=== PATIENT | male | born 1995 | race Caucasian/White ===

== ENCOUNTER 2020-11-07 09:25 | Inpatient (IN) | payer SELFPAY ==
--- NOTE | 2020-11-07 09:46 | ED_ITS ---
Documented by User: KAILYN Mclain 11/07/20 18:09 HPI - Psych General: Chief Complaint: Psychiatric Symptoms Stated Complaint: Depression and anxiety Time Seen by Provider: 11/07/20 09:31 Source: patient Mode of arrival: ambulatory Limitations: no limitations History of Present Illness: HPI Narrative: 25-year-old male patient presents to the emergency department via private auto, ambulatory with increased depression and anxiety symptoms for the past several weeks. He reports has not had a lot of time to think over the weekend, reports increased depression secondary to inability to meet job expectations and is afraid he may not have a job. He reports difficulty with sleeping, reports insomnia, has not taken [id number] medication to help with sleep. History of present illness difficult to obtain, answers are short. He reports recent separation from his spouse, currently [facility]. He reports increased stress and anxiety due to living situation and employment situation. When asked what brought into the hospital today as he has experienced anxiety and depression symptoms for the past 4 weeks, he reports decided to receive treatment today. He has an appointment tomorrow with behavioral health for intake. MD complaint: feels depressed Onset (ago): week(s) (4) Duration: constant History of same: Yes Relieving factors: none Exacerbating factors: none Context: recent drug abuse Associated psychiatric symptoms: depression and other (Anxiety) Associated symptoms: Reports auditory hallucinations (Reports voices are telling him what other people think, not positive or neg) and depression; Deny visual hallucinations, homicidal ideation or suicidal ideation Review of Systems General: Reports: 10 or more systems reviewed and unremarkable except in HPI and below Const: Denies: fever(s), chills or diaphoresis Eyes: Denies: blurry vision or eye redness ENMT: Denies: throat pain, dental pain or disequilibrium Card: Denies: chest pain, palpitations or irregular heart rhythm Resp: Denies: dyspnea, productive cough, non-productive cough or wheezing GI: Denies: abdominal pain, nausea or vomiting : Denies: dysuria Musc: Denies: back pain Skin/Breast: Denies: rash or pruritus Neuro: Denies: headache(s), weakness in extremities or behavioral changes Psych: Reports: anxiety, depression, sleeping less, hopelessness, loss of interest, difficulty concentrating and auditory hallucinations (Reports voices are telling him what other people think, not positive or neg); Denies: change in appetite, memory loss, visual hallucinations, suicidal ideation or homicidal ideation Justo/Lymph: Denies: easy bruising PFSH ED PFSH: Medical History (Updated 11/07/20 @ 13:15 by Sidney Burgos DO) Anxiety Depression Physical Exam Const: COMMON NORMALS: no acute distress, patient oriented x3, healthy appearing and alert GENERAL APPEARANCE: cooperative, comfortable, well kempt and well hydrated HENMT: COMMON NORMALS: normocephalic, Normal external nose present and moist oral mucous membranes HEAD & SCALP: normocephalic NOSE: Normal external nose present Eye: COMMON NORMALS: Equal, round and reactive pupils present and EOMs intact bilaterally GENERAL EYE: appearance normal, both eyes and all related structures PUPIL: Yes Equal, round and reactive pupils present Neck/C-Spine: COMMON NORMALS: full ROM and no lymphadenopathy GENERAL: Yes normal visual inspection and Yes trachea midline CERVICAL SPINE: Yes cervical ROM normal Lymph: LYMPHATIC: no lymphadenopathy noted Chest: COMMONS NORMALS: normal inspection of the chest Resp: COMMON NORMALS: normal respiratory effort and clear to auscultation bilaterally AUSCULTATION: clear to auscultation bilaterally Cardio: COMMON NORMALS: regular rhythm, S1 normal heart sound present, S2 normal heart sound present and Peripheral pulses 2+ throughout RHYTHM: regular rhythm HEART SOUNDS: S1 normal heart sound present and S2 normal heart sound present PERIPHERAL PULSES: Peripheral pulses 2+ throughout GI: COMMON NORMALS: Normal to inspection, nondistended, normoactive bowel sounds present, Soft to palpation and non-tender INSPECTION: Yes normal to inspection PALPATION: Yes Soft to palpation : COMMON NORMALS: Yes no CVA tenderness BLADDER/KIDNEY EXAM: Yes no CVA tenderness Back/Pelvis: COMMON NORMALS: no CVA tenderness, thoracic and lumbar spine normal to inspection and no thoracic nor lumbar tenderness Extremity: COMMON NORMALS: normal to inspection, full ROM, capillary refill normal and no pedal edema GENERAL: Yes normal exam except as noted Neuro: VIVI COMA SCALE: document GCS findings Vivi coma scale eye opening: Spontaneous Vivi coma scale verbal response: Orientated Vivi coma scale motor response: Obey commands [place] coma scale total score: 15 COMMON NORMALS: patient oriented x3 and no focal motor deficits SENSOR IUM/ORIENTATION: Yes alert GAIT: Yes Normal gait present MOTOR EXAM: 5/5 motor strength present throughout Right pupil size (mm): 4 Left pupil size (mm): 4 Psych: COMMON NORMALS: mental status grossly normal, cooperative, speech normal, activity/motor behavior normal, denies homicidal ideation and denies suicidal ideation APPEARANCE: Yes grossly normal and Yes well kempt ATTITUDE: Yes calm and Yes Other attitude/behavior findings present (Psych) (Passive) ACTIVITY/MOTOR BEHAVIOR: Yes appropriate eye contact, No psychomotor agitation, No fidgeting and No restless SPEECH: Yes normal speech MOOD & AFFECT: Yes depressed mood and Yes Flat affect present THOUGHT PROCESS: Circumstantial thought process present THOUGHT CONTENT: Yes Normal thought content present, No Suicidality present, No Homicidality present and Yes Hallucination(s) present (Denies hallucinations upon exam, auditory or visual) ATTENTION/CONCENTRATION: Yes attention grossly intact MEMORY/COGNITION: Yes memory grossly intact INSIGHT: Fair insight present (Psych) JUDGEMENT: Good judgement present (Psych) Skin: COMMON NORMALS: no rashes or lesions noted and turgor normal GENERAL SKIN EXAM: no rashes or lesions noted and turgor normal MDM - Psych Lab Data: Labs: Lab Results 11/07/20 11/07/20 11/07/20 Range/Units 10:45 10:45 11:57 WBC 9.8 (4.0-10.0) 10^3/ uL RBC 5.55 H (4.1-5.3) 10^6/u L Hgb 16.1 (11.7-16.6) g/dL Hct 48.9 (42.0-52.0) % MCV 88.1 (80-94) fL MCH 29.0 (28.0-34.0) pg MCHC 32.9 (30.0-36.0) g/dL RDW 12.4 (12.1-15.1) % Plt Count 190 (130-400) 10^3/c mm MPV 10.1 (7.4-10.4) fL Neut % (Auto) 66.6 % Lymph % (Auto) 23.0 % [place] % (Auto) 7.9 % Eos % (Auto) 1.5 % Baso % (Auto) 0.6 % Neut # (Auto) 6.55 (1.8-7.7) 10^3/u L Lymph # (Auto) 2.3 (0.8-4.8) 10^3/u L [place] # (Auto) 0.8 (0.2-0.9) 10^3/u L Eos # (Auto) 0.2 (0.0-0.8) 10^3/u L Baso # (Auto) 0.1 (0.0-0.1) 10^3/u L Nucleated RBC % (a uto) 0 % Nucleated RBCs # 0.0 /100WBC Sodium 139 (136-145) mmol/L Potassium 4.2 (3.5-5.1) mmol/L Chloride 103 (98-107) mmol/L Carbon Dioxide 26 (22-29) mmol/L Anion Gap 14.2 (5-19) BUN 11 (6-20) mg/dL Creatinine 0.7 (0.7-1.2) mg/dL GFR Calculation 138.6 H (90-130) mL/min Glucose 91 (65-115) mg/dL Calculated Osmolal ity 287 (285-295) mOsm/k g Calcium 9.5 (8.5-10.5) mg/dL Total Bilirubin 0.5 (0.15-1.2) mg/dL AST 18 (0-40) U/L ALT 33 (0-41) U/L Alkaline Phosphata se 97 (40-130) IU/L Total Protein 6.9 (6.6-8.7) g/dL Albumin 4.8 (3.5-5.2) g/dL Globulin 2.1 (1.3-4.6) g/dL Urine Color Yellow (Yellow) Urine Appearance Clear (CLEAR) Urine pH 8 H (5-7) Ur Specific Gravit y 1.010 (1.005-1.030) Urine Protein Neg (Negative) Urine Glucose (UA) Norm (Normal) Urine Ketones Negative (Negative) Urine Blood Neg (Negative) Urine Nitrate Negative (Negative) Urine Bilirubin Neg (Negative) Prot Sulfosalicyli c Acd Negative (Negative) Urine Urobilinogen Norm (Negative) mg/dL Ur Leukocyte Marjorie ase Negative (Negative) Salicylates < 0.3 L (3-10) mg/dL Urine Opiates Scre en (Negative) ng/mL Acetaminophen < 5.0 L (10-30) ug/mL Ur Barbiturates Sc reen (Negative) ng/mL Ur Phencyclidine S crn (Negative) ng/mL Ur Amphetamines Sc reen (Negative) ng/mL U Benzodiazepines Scrn (Negative) ng/mL Urine Cocaine Scre en (Negative) ng/mL U Marijuana (THC) Screen (Negative) ng/mL Ethyl Alcohol < 10 (0-10) mg/dL 11/07/20 Range/Units 11:57 WBC (4.0-10.0) 10^3/ uL RBC (4.1-5.3) 10^6/u L Hgb (11.7-16.6) g/dL Hct (42.0-52.0) % MCV (80-94) fL MCH (28.0-34.0) pg MCHC (30.0-36.0) g/dL RDW (12.1-15.1) % Plt Count (130-400) 10^3/c mm MPV (7.4-10.4) fL Neut % (Auto) % Lymph % (Auto) % [place] % (Auto) % Eos % (Auto) % Baso % (Auto) % Neut # (Auto) (1.8-7.7) 10^3/u L Lymph # (Auto) (0.8-4.8) 10^3/u L [place] # (Auto) (0.2-0.9) 10^3/u L Eos # (Auto) (0.0-0.8) 10^3/u L Baso # (Auto) (0.0-0.1) 10^3/u L Nucleated RBC % (a uto) % Nucleated RBCs # /100WBC Sodium (136-145) mmol/L Potassium (3.5-5.1) mmol/L Chloride (98-107) mmol/L Carbon Dioxide (22-29) mmol/L Anion Gap (5-19) BUN (6-20) mg/dL Creatinine (0.7-1.2) mg/dL GFR Calculation (90-130) mL/min Glucose (65-115) mg/dL Calculated Osmolal ity (285-295) mOsm/k g Calcium (8.5-10.5) mg/dL Total Bilirubin (0.15-1.2) mg/dL AST (0-40) U/L ALT (0-41) U/L Alkaline Phosphata se (40-130) IU/L Total Protein (6.6-8.7) g/dL Albumin (3.5-5.2) g/dL Globulin (1.3-4.6) g/dL Urine Color (Yellow) Urine Appearance (CLEAR) Urine pH (5-7) Ur Specific Gravit y (1.005-1.030) Urine Protein (Negative) Urine Glucose (UA) (Normal) Urine Ketones (Negative) Urine Blood (Negative) Urine Nitrate (Negative) Urine Bilirubin (Negative) Prot Sulfosalicyli c Acd (Negative) Urine Urobilinogen (Negative) mg/dL Ur Leukocyte Marjorie ase (Negative) Salicylates (3-10) mg/dL Urine Opiates Scre en Negative (Negative) ng/mL Acetaminophen (10-30) ug/mL Ur Barbiturates Sc reen Negative (Negative) ng/mL Ur Phencyclidine S crn Negative (Negative) ng/mL Ur Amphetamines Sc reen Negative (Negative) ng/mL U Benzodiazepines Scrn Negative (Negative) ng/mL Urine Cocaine Scre en Negative (Negative) ng/mL U Marijuana (THC) Screen Positive H (Negative) ng/mL Ethyl Alcohol (0-10) mg/dL Discharge Plan Discharge Patient Disposition: Admitted As Inpatient Admit Provider: Edy Baires Clinical Impression: Suicidal ideation Condition: Stable Sign Out Sign Out Data: Patient Sign Out occurred on 11/07/20 at 12:46. Patient's care was discussed, and care was transferred from to Sidney Burgos DO. Coding Level of Care Code ED Director Of Conservation for Chg Fwd Exam Comprehensive Documented by User: Sidney Burgos DO 11/07/20 13:15 HPI - Psych General: Chief Complaint: Psychiatric Symptoms Stated Complaint: Depression and anxiety Time Seen by Provider: 11/07/20 09:31 PFSH ED PFSH: Medical History (Updated 11/07/20 @ 13:15 by Sidney Burgos, ) Anxiety Depression MDM - Psych MDM Narrative: Medical decision making narrative: Discussed with nurse practitioner Dr. Baires is already accepted reviewed the chart and examined the patient chest clear heart regular he continues to express suicidal ideation orders are written review nurse practitioner's note for the remainder of history and exam. Lab Data: Labs: Lab Results 11/07/20 11/07/20 11/07/20 Range/Units 10:45 10:45 11:57 WBC 9.8 (4.0-10.0) 10^3/ uL RBC 5.55 H (4.1-5.3) 10^6/u L Hgb 16.1 (11.7-16.6) g/dL Hct 48.9 (42.0-52.0) % MCV 88.1 (80-94) fL MCH 29.0 (28.0-34.0) pg MCHC 32.9 (30.0-36.0) g/dL RDW 12.4 (12.1-15.1) % Plt Count 190 (130-400) 10^3/c mm MPV 10.1 (7.4-10.4) fL Neut % (Auto) 66.6 % Lymph % (Auto) 23.0 % [place] % (Auto) 7.9 % Eos % (Auto) 1.5 % Baso % (Auto) 0.6 % Neut # (Auto) 6.55 (1.8-7.7) 10^3/u L Lymph # (Auto) 2.3 (0.8-4.8) 10^3/u L [place] # (Auto) 0.8 (0.2-0.9) 10^3/u L Eos # (Auto) 0.2 (0.0-0.8) 10^3/u L Baso # (Auto) 0.1 (0.0-0.1) 10^3/u L Nucleated RBC % (a uto) 0 % Nucleated RBCs # 0.0 /100WBC Sodium 139 (136-145) mmol/L Potassium 4.2 (3.5-5.1) mmol/L Chloride 103 (98-107) mmol/L Carbon Dioxide 26 (22-29) mmol/L Anion Gap 14.2 (5-19) BUN 11 (6-20) mg/dL Creatinine 0.7 (0.7-1.2) mg/dL GFR Calculation 138.6 H (90-130) mL/min Glucose 91 (65-115) mg/dL Calculated Osmolal ity 287 (285-295) mOsm/k g Calcium 9.5 (8.5-10.5) mg/dL Total Bilirubin 0.5 (0.15-1.2) mg/dL AST 18 (0-40) U/L ALT 33 (0-41) U/L Alkaline Phosphata se 97 (40-130) IU/L Total Protein 6.9 (6.6-8.7) g/dL Albumin 4.8 (3.5-5.2) g/dL Globulin 2.1 (1.3-4.6) g/dL Urine Color Yellow (Yellow) Urine Appearance Clear (CLEAR) Urine pH 8 H (5-7) Ur Specific Gravit y 1.010 (1.005-1.030) Urine Protein Neg (Negative) Urine Glucose (UA) Norm (Normal) Urine Ketones Negative (Negative) Urine Blood Neg (Negative) Urine Nitrate Negative (Negative) Urine Bilirubin Neg (Negative) Prot Sulfosalicyli c Acd Negative (Negative) Urine Urobilinogen Norm (Negative) mg/dL Ur Leukocyte Marjorie ase Negative (Negative) Salicylates < 0.3 L (3-10) mg/dL Urine Opiates Scre en (Negative) ng/mL Acetaminophen < 5.0 L (10-30) ug/mL Ur Barbiturates Sc reen (Negative) ng/mL Ur Phencyclidine S crn (Negative) ng/mL Ur Amphetamines Sc reen (Negative) ng/mL U Benzodiazepines Scrn (Negative) ng/mL Urine Cocaine Scre en (Negative) ng/mL U Marijuana (THC) Screen (Negative) ng/mL Ethyl Alcohol < 10 (0-10) mg/dL 11/07/20 Range/Units 11:57 WBC (4.0-10.0) 10^3/ uL RBC (4.1-5.3) 10^6/u L Hgb (11.7-16.6) g/dL Hct (42.0-52.0) % MCV (80-94) fL MCH (28.0-34.0) pg MCHC (30.0-36.0) g/dL RDW (12.1-15.1) % Plt Count (130-400) 10^3/c mm MPV (7.4-10.4) fL Neut % (Auto) % Lymph % (Auto) % [place] % (Auto) % Eos % (Auto) % Baso % (Auto) % Neut # (Auto) (1.8-7.7) 10^3/u L Lymph # (Auto) (0.8-4.8) 10^3/u L [place] # (Auto) (0.2-0.9) 10^3/u L Eos # (Auto) (0.0-0.8) 10^3/u L Baso # (Auto) (0.0-0.1) 10^3/u L Nucleated RBC % (a uto) % Nucleated RBCs # /100WBC Sodium (136-145) mmol/L Potassium (3.5-5.1) mmol/L Chloride (98-107) mmol/L Carbon Dioxide (22-29) mmol/L Anion Gap (5-19) BUN (6-20) mg/dL Creatinine (0.7-1.2) mg/dL GFR Calculation (90-130) mL/min Glucose (65-115) mg/dL Calculated Osmolal ity (285-295) mOsm/k g Calcium (8.5-10.5) mg/dL Total Bilirubin (0.15-1.2) mg/dL AST (0-40) U/L ALT (0-41) U/L Alkaline Phosphata se (40-130) IU/L Total Protein (6.6-8.7) g/dL Albumin (3.5-5.2) g/dL Globulin (1.3-4.6) g/dL Urine Color (Yellow) Urine Appearance (CLEAR) Urine pH (5-7) Ur Specific Gravit y (1.005-1.030) Urine Protein (Negative) Urine Glucose (UA) (Normal) Urine Ketones (Negative) Urine Blood (Negative) Urine Nitrate (Negative) Urine Bilirubin (Negative) Prot Sulfosalicyli c Acd (Negative) Urine Urobilinogen (Negative) mg/dL Ur Leukocyte Marjorie ase (Negative) Salicylates (3-10) mg/dL Urine Opiates Scre en Negative (Negative) ng/mL Acetaminophen (10-30) ug/mL Ur Barbiturates Sc reen Negative (Negative) ng/mL Ur Phencyclidine S crn Negative (Negative) ng/mL Ur Amphetamines Sc reen Negative (Negative) ng/mL U Benzodiazepines Scrn Negative (Negative) ng/mL Urine Cocaine Scre en Negative (Negative) ng/mL U Marijuana (THC) Screen Positive H (Negative) ng/mL Ethyl Alcohol (0-10) mg/dL Discharge Plan Discharge Patient Disposition: Admitted As Inpatient Admit Provider: Edy Baires Clinical Impression: Suicidal ideation Condition: Stable Sign Out Sign Out Data: Patient Sign Out occurred on 11/07/20 at 12:46. Patient's care was discussed, and care was transferred from to Sidney Burgos DO. Coding Level of Care Code ED Director Of Conservation for [place]bert[place] Fwd Exam Comprehensive
[2020-11-07 10:10] VITALS: PULSE 101; RESP 20; TEMP 36.8; O2SAT 97
[2020-11-07 10:57] LABS: Basophils # 0.1 10^3/uL (0.0-0.1); Basophils % 0.6 %; Eosinophils # 0.2 10^3/uL (0.0-0.8); Eosinophils % 1.5 %; Hematocrit 48.9 % (42.0-52.0); Hemoglobin 16.1 g/dL (11.7-16.6); Lymphocytes # 2.3 10^3/uL (0.8-4.8); Mean Corpuscular HGB Conc 32.9 g/dL (30.0-36.0); Mean Corpuscular Volume 88.1 fL (80-94); Mean Platelet Volume 10.1 fL (7.4-10.4); Monocytes # 0.8 10^3/uL (0.2-0.9); Monocytes % 7.9 %; Neutrophils # 6.55 10^3/uL (1.8-7.7); Neutrophils % 66.6 %; Nucleated Red Blood Cells % 0 %; Platelet Count 190 10^3/cmm (130-400); Red Blood Count 5.55 10^6/uL (4.1-5.3); Red Cell Distribution Width 12.4 % (12.1-15.1); White Blood Count 9.8 10^3/uL (4.0-10.0)
[2020-11-07 11:12] LABS: Alanine Aminotransferase 33 U/L (0-41); Albumin Level 4.8 g/dL (3.5-5.2); Alkaline Phosphatase 97 IU/L (40-130); Anion Gap 14.2 (5-19); Aspartate Amino Transferase 18 U/L (0-40); Blood Urea Nitrogen 11 mg/dL (6-20); Calcium 9.5 mg/dL (8.5-10.5); Carbon Dioxide 26 mmol/L (22-29); Chloride 103 mmol/L (98-107); Globulin 2.1 g/dL (1.3-4.6); Glomerular Filtration Rate 138.6 mL/min (90-130); Glucose 91 mg/dL (65-115); Osmolality Calculated 287 mOsm/kg (285-295); Potassium 4.2 mmol/L (3.5-5.1); Sodium 139 mmol/L (136-145); Total Bilirubin 0.5 mg/dL (0.15-1.2); Total Protein 6.9 g/dL (6.6-8.7)
[2020-11-07 11:16] LABS: Acetaminophen < 5.0 ug/mL (10-30); Alcohol Level < 10 mg/dL (0-10); Salicylate < 0.3 mg/dL (3-10)
[2020-11-07 12:01] LABS: Add Urine Microscopic? NO
[2020-11-07 12:12] LABS: Amphetamines Screen Urine Negative (Negative); Barbiturates Screen Urine Negative (Negative); Benzodiazepines Screen Urine Negative (Negative); Cocaine Screen Urine Negative (Negative); Opiate Screen Urine Negative (Negative); PCP Screen Urine Negative (Negative); THC Screen Urine Positive (Negative)
[2020-11-07 12:20] LABS: Bilirubin Urine Neg (Negative); Blood Urine Neg (Negative); Glucose Urine UA Norm (Normal); Ketones Urine Negative (Negative); Leukocyte Esterase Urine Negative (Negative); Nitrate Urine Negative (Negative); Protein Urine Neg (Negative); Sulfosalicylic Acid Urine Negative (Negative); Urine Appearance Clear (CLEAR); Urine Color Yellow (Yellow); Urobilinogen Urine Norm (Negative); pH Urine 8 (5-7)
[2020-11-07 12:56] VITALS: BP 127/75; PULSE 95; O2SAT 96
--- NOTE | 2020-11-07 13:55 | PC.NURSE ---
Pt changed into paper scrubs at this time, belongings placed in a belonging bag to be taken to [facility].
[2020-11-07 14:00] VITALS: BP 149/83; PULSE 77; O2SAT 98
[2020-11-07 14:03] VITALS: BP 145/94; PULSE 152; RESP 18; TEMP 36.7; O2SAT 98
[2020-11-07 20:24] VITALS: BP 153/71; PULSE 111; RESP 18; TEMP 36.8; O2SAT 94
[2020-11-07] MEDS: trazodone 50 mg Tablet PO (20:24)
[2020-11-07] MEDS: hyDROXYzine 25 mg Capsule 50 MG PO (20:24)
[2020-11-08 06:00] VITALS: BP 108/67; PULSE 56; RESP 17; TEMP 37.1; O2SAT 96
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
[2020-11-08 12:08] VITALS: BP 108/67; PULSE 56; RESP 17; TEMP 37.1; O2SAT 96
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
[2020-11-08] MEDS: fluoxetine 20 mg Capsule PO (13:44)
== END 2020-11-08 14:37 | disposition home or self-care (01) | DRG 885 ==
LOC: ER 13:15 → NP 13:28
PROVIDERS: Nurse Practitioner Family; Admitting Provider Psychiatry & Neurology Psychiatry; Emergency Provider Family Medicine; Visit Provider Psychiatry & Neurology Psychiatry
DX: F20.81 Schizophreniform disorder (principal); R45.851 Suicidal ideations; F32.9 Major depressive disorder, single episode, unspecified; F41.9 Anxiety disorder, unspecified; G47.00 Insomnia, unspecified; Z59.0 Homelessness; F98.8 Other specified behavioral and emotional disorders with onset usually occurring in childhood and adolescence; F91.3 Oppositional defiant disorder; F40.10 Social phobia, unspecified; F12.90 Cannabis use, unspecified, uncomplicated
CPT/HCPCS: 12345; 80053; 80306; 80307; 81003; 85025; 99284

== ENCOUNTER 2021-01-08 17:35 | Emergency (ER) | payer SELFPAY ==
[2021-01-08 17:37] VITALS: BP 144/81; PULSE 89; RESP 16; TEMP 36.8; O2SAT 97; BMI 26.3
--- NOTE | 2021-01-08 18:03 | W.ED.ABDPA2 ---
HPI - Abdominal Pain General: Chief Complaint: Abdominal Pain Stated Complaint: ABD PAIN Time Seen by Provider: 01/08/21 17:53 Source: patient Mode of arrival: ambulatory Limitations: no limitations History of Present Illness: HPI narrative: Patient is a 25-year-old male who presents to ED today stating that he has heartburn. Patient tells me he has been experiencing heartburn for several months now. He states he currently resides in a homeless retirement. He states a few weeks ago one of the homeless residents began giving him a heartburn pill that he took every day. He states when he took this medication it completely alleviated his symptoms however he states symptoms returned approximately 1 to 2 weeks ago. He states pain seems to be worse with fatty and acidic foods. When asked specifically what his symptoms include he states epigastric and chest pain along with an acid taste in his mouth. Patient is completely asymptomatic currently. He is not having any abdominal pain. No nausea, vomiting. No changes in bowel movements. He does not complain of shortness of breath or difficulty breathing. MD elicited complaint: other ( heartburn ) Pertinent past history: none Onset (ago): week(s) Pain Consistency: intermittent Location: Chest and Epigastric Severity: mild Quality: burning Radiation: none Migration to: no migration Exacerbating factors: eating (acid and fatty foods) Relieving factors: other ( heartburn pill ) Associated Symptoms: Reports no associated symptoms; Denies chills, diarrhea, dysuria, fever(s), heartburn, nausea, syncope and vomiting Review of Systems General: Reports: Other (pt has no complaints currently ) Const: Denies: fever(s) or chills Eyes: Denies: change in vision or blurry vision Card: Denies: chest pain, palpitations, irregular heart rhythm, lightheadedness, syncope or dyspnea on exertion Resp: Denies: dyspnea, productive cough or pain on inspiration GI: Denies: abdominal pain, nausea, vomiting, heartburn or diarrhea : Denies: difficulty urinating or dysuria Musc: Denies: neck pain, back pain or joint pain Skin/Breast: Denies: rash Neuro: Denies: headache(s) [facility] ED PFSH: Medical History (Updated 01/08/21 @ 18:18 by WESLEY Ortiz) Anxiety Depression Physical Exam Const: COMMON NORMALS: no acute distress, average body habitus, patient oriented x3, no limitations, healthy appearing, alert and well nourished GENERAL APPEARANCE: cooperative ORIENTATION/CONSCIOUSNESS: Yes awake, Yes oriented to person, Yes oriented to place and Yes oriented to time HENMT: COMMON NORMALS: normocephalic and atraumatic HEAD & SCALP: normocephalic and atraumatic Neck/C-Spine: COMMON NORMALS: full ROM, no lymphadenopathy, supple and no meningeal signs Chest: COMMONS NORMALS: normal inspection of the chest and normal palpation of entire chest wall Resp: COMMON NORMALS: normal respiratory effort and clear to auscultation bilaterally AUSCULTATION: clear to auscultation bilaterally Cardio: COMMON NORMALS: regular rate and regular rhythm RATE: regular rate RHYTHM: regular rhythm GI: COMMON NORMALS: Normal to inspection, nondistended, normoactive bowel sounds present, Soft to palpation, non-tender, No hepatosplenomegaly present and no masses PALPATION: Yes Soft to palpation and Yes No hepatosplenomegaly present : COMMON NORMALS: Yes no CVA tenderness BLADDER/KIDNEY EXAM: Yes no CVA tenderness Back/Pelvis: COMMON NORMALS: no CVA tenderness and thoracic and lumbar spine normal to inspection Extremity: COMMON NORMALS: normal to inspection Neuro: COMMON NORMALS: patient oriented x3 SENSORIUM/ORIENTATION: Yes alert, Yes oriented to person, Yes oriented to place and Yes oriented to time MENINGEAL SIGNS: Yes no meningeal signs Skin: COMMON NORMALS: no rashes or lesions noted GENERAL SKIN EXAM: no rashes or lesions noted Course Vital Signs: Vital signs: Vital Signs Temperature 98.2 F 01/08/21 17:37 Pulse Rate 89 01/08/21 17:37 Respiratory Rate 16 01/08/21 17:37 Blood Pressure 144/81 01/08/21 17:37 Pulse Oximetry 97 01/08/21 17:37 MDM - Abdominal Pain MDM Narrative: Medical decision making narrative: Patient has absolutely no symptoms currently. His history is consistent with heartburn. He has been successfully treated with this with heartburn medications but states he has ran out. There is no need for emergent labs or imaging on today's visit. Patient will be placed on an H2 shruti. Discharge Plan Discharge Patient Disposition: Home Clinical Impression: Heartburn Condition: Stable Prescriptions: New famotidine 20 mg tablet 20 mg PO BID 28 Days Qty: 56 RF: 0 No Action trazodone 50 mg Tablet 50 mg PO BEDTIME PRN (Reason: Sleep) 30 Days Qty: 30 RF: 1 fluoxetine 20 mg Capsule 20 mg PO DAILY 30 Days Qty: 30 RF: 1 Discharge Orders: Discharge ED (Routine); Ordered 01/08/21 Ordered By: Brittany Alcocer Patient Instructions: Famotidine (By mouth), Heartburn, Opioid Safety Activity Restrictions/Additional Instructions: [facility] is committed to fighting the nationwide opiate epidemic. We are providing ALL patients with information regarding opiate safety. If you received opiate pain medication during your stay or if you received a prescription for opiate pain medication-please review this handout. If not, you may disregard. Thank you. Coding Level of Care Code ED Station Tender for Ila Post
[2021-01-08 18:30] VITALS: BP 139/82; PULSE 78; RESP 14; O2SAT 96
== END 2021-01-08 18:49 | disposition home or self-care (01) ==
PROVIDERS: Emergency Provider Physician Assistant
DX: R12 Heartburn (principal)
CPT/HCPCS: 99282

== ENCOUNTER 2022-01-15 15:14 | Emergency (ER) | payer MEDICAID, SELFPAY ==
--- NOTE | 2022-01-15 15:16 | XRR_ITS ---
PROCEDURE INFORMATION: Exam: XR Left Ankle Exam date and time: 01/15/2022 3:16 PM Age: 26 years old Clinical indication: Pain and injury or trauma; Fall; Sprain or strain; Left; Injury details: PT slipped and fell on the ice last week; PT complains of pain from lateral lt ankle to medial lt ankle; PT thinks he May have sprained lt foot in the process; Additional info: L sided ankle pain TECHNIQUE: Imaging protocol: XR Left ankle. Views: 1 or 2 views. COMPARISON: CR XR foot LT min 3V* [id number] 01/15/2022 3:38 PM FINDINGS: Bones/joints: There is no evidence for acute fracture or malalignment. Soft tissues: Normal. XR/XR ankle LT 2V [id number] IMPRESSION: No acute findings.
--- NOTE | 2022-01-15 15:16 | XRR_ITS ---
PROCEDURE INFORMATION: Exam: XR Left Foot Exam date and time: 01/15/2022 3:16 PM Age: 26 years old Clinical indication: Pain; Foot; Left; Additional info: L foot pain TECHNIQUE: Imaging protocol: XR Left foot. Views: 3 or more views. COMPARISON: No relevant prior studies available. FINDINGS: Bones/joints: There is no evidence for acute fracture or malalignment. Soft tissues: Normal. XR/XR foot LT min 3V* [id number] IMPRESSION: No acute findings.
[2022-01-15 15:31] VITALS: BP 148/94; PULSE 86; RESP 16; TEMP 37.1; O2SAT 98; BMI 24.2
--- NOTE | 2022-01-15 15:41 | ED_ITS ---
HPI - Extremity Problem General: Chief complaint: Extremity Injury, Lower Stated complaint: Left ankle injury Time Seen by Provider: 01/15/22 15:36 History of Present Illness: Patient is a 26-year-old male comes to the ED with left ankle injury. Injury occurred approximately 1 week ago. Patient was walking on a hill and he rolled his left ankle. He went to urgent care they told him that he had a sprain and he needed to rest ice and elevate left foot. Patient says his swelling and pain have gotten a lot better. He still feels a little bit of achiness in his left ankle. Patient is able to ambulate and bear weight on left foot. Associated symptoms: Deny chest pain, fever(s) or rash Review of Systems Const: Denies: fever(s), chills or fatigue Eyes: Denies: change in vision or eye discomfort ENMT: Denies: throat pain, odynophagia, nasal discharge or nasal congestion Card: Denies: chest pain, palpitations, edema, swelling of feet/ankles, dyspnea on exertion or orthopnea Resp: Denies: dyspnea, productive cough or non-productive cough GI: Denies: abdominal pain, nausea, vomiting, diarrhea, constipation or hematochezia : Denies: flank pain, difficulty urinating, dysuria or hematuria Musc: Reports: extremity pain (Left ankle); Denies: neck pain, back pain or extremity swelling Skin/Breast: Denies: rash or new lesions Neuro: Denies: headache(s), numbness in extremities or weakness in extremities PFS ED PFSH: Medical History (Updated 01/15/22 @ 16:35 by WESLEY Powers) Anxiety Depression Fatigue Foreign body in left ear Hypertension screen Medication management Otitis externa Vitamin D deficiency Surgical History (Updated 01/15/22 @ 16:35 by WESLEY Powers) No pertinent past surgical history Social History Smoking and tobacco status: never smoked Physical Exam Const: COMMON NORMALS: no acute distress, patient oriented x3 and alert HENMT: COMMON NORMALS: normocephalic HEAD & SCALP: normocephalic MOUTH: Normal oral and palatal mucosa present THROAT: posterior oropharynx normal and uvula midline Neck/C-Spine: COMMON NORMALS: supple GENERAL: Yes normal visual inspection Resp: COMMON NORMALS: normal respiratory effort, No retractions, No use of accessory muscles and clear to auscultation bilaterally AUSCULTATION: clear to auscultation bilaterally Cardio: COMMON NORMALS: regular rate, regular rhythm, S1 normal heart sound present, S2 normal heart sound present, No gallops present (Cardio), No clicks present (Cardio), No murmurs present (Cardio) and Peripheral pulses 2+ throughout RATE: regular rate RHYTHM: regular rhythm HEART SOUNDS: S1 normal heart sound present and S2 normal heart sound present PERIPHERAL PULSES: Peripheral pulses 2+ throughout GI: COMMON NORMALS: Normal to inspection, nondistended, normoactive bowel sounds present, Soft to palpation, non-tender and no masses PALPATION: Yes Soft to palpation : COMMON NORMALS: Yes no CVA tenderness BLADDER/KIDNEY EXAM: Yes no CVA tenderness Back/Pelvis: COMMON NORMALS: no CVA tenderness Extremity: COMMON NORMALS: full ROM and no pedal edema NARRATIVE EXTREMITY EXAM: Left ankle?some mild tenderness to palpation over the lateral malleolus. Full range of motion in the left ankle. No swelling or deformity seen. Neurovascular tact. GENERAL: Yes normal exam except as noted Neuro: COMMON NORMALS: patient oriented x3 and moves all extremities SENSORIUM/ORIENTATION: Yes alert Skin: GENERAL SKIN EXAM: dry skin Course Vital Signs: Vital signs: Vital Signs Temperature 98.7 F 01/15/22 15:31 Pulse Rate 86 01/15/22 15:31 Respiratory Rate 16 01/15/22 15:31 Blood Pressure 148/94 01/15/22 15:31 Pulse Oximetry 98 01/15/22 15:31 MDM - Extremity (Nontraumatic) Medical Decision Making Patient is a 26-year-old male comes to the ED with left ankle injury. Patient says he rolled his ankle a week ago. Patient able to ambulate and weight-bear on left foot with minimal to no pain. Patient had some mild lateral malleolus tenderness over left ankle but rest of exam is benign. X-ray of left foot and left ankle showed no acute fractures or findings. Patient diagnosed with left ankle sprain and was discharged home. Lab Data Radiology Impressions Ankle X-Ray 01/15/22 15:16 IMPRESSION: No acute findings. Foot X-Ray 01/15/22 15:16 IMPRESSION: No acute findings. Discharge Plan Discharge Patient Disposition: Home Clinical Impression: Left ankle sprain Qualifiers: Encounter type: initial encounter Involved ligament of ankle: anterior talofibular ligament Qualified Code(s): S93.492A - Sprain of other ligament of left ankle, initial encounter Condition: Stable Discharge Orders: Discharge ED (Routine); Ordered 01/15/22 Ordered By: Anders Daily Referrals: DO Plunkett, LUBRICATION TECHNICIAN [Primary Care Provider] - Discharge Diet: Regular Discharge Activity: Increase activity as tolerated Patient Instructions: Ankle Sprain (DC) Activity Restrictions/Additional Instructions: Follow-up with medical provider as directed in 7 to 10 days for evaluation. Take [id number] Tylenol or ibuprofen for pain. Rest, ice and elevate foot. Return to the ER or your medical provider if condition worsens. Please read and understand discharge instructions. Thank you for choosing [facility] [place] for your healthcare needs today. Please realize this is an emergency room and that we are providing you with a medical screening exam and this may not be complete and all inclusive of all the testing and or work up that you may need to determine your ailment or severity of your illness. It is very important that you follow up as instructed or that you return to the Emergency Department should you have concerns or if your condition changes or worsens in any way. Coding Level of Care Code ED Tax Specialist for Ila Post Exam Comprehensive
== END 2022-01-15 16:43 | disposition home or self-care (01) ==
PROVIDERS: Emergency Provider Physician Assistant; PCP Nurse Practitioner Family
DX: S93.492A Sprain of other ligament of left ankle, initial encounter (principal); X50.1XXA Overexertion from prolonged static or awkward postures, initial encounter
CPT/HCPCS: 73600; 73630; 99282

== ENCOUNTER 2022-02-19 20:45 | Inpatient (IN) | payer MEDICAID, SELFPAY ==
[2022-02-19 20:50] VITALS: BP 170/100; PULSE 96; RESP 16; TEMP 37.1; O2SAT 96; BMI 25.7
--- NOTE | 2022-02-19 21:00 | ED_ITS ---
HPI - General Adult General: Chief complaint: Psychiatric Symptoms Stated complaint: Psyciatric Symptoms Time Seen by Provider: 02/19/22 20:48 History of Present Illness: HPI: [27]yo patient w/ hx of depression BIBA for severe depression and inability to care of self. Patient's father was concerned that patient has not been taking his medication and not taking care of self including not eating. for On arrival, the patient is AAOx3 and cooperative with my evaluation. No focal complaints of chest pain, shortness of breath, palpitations, N/V, focal GI/ complaints. Currently denies SI. No complaints of hallucinations. Onset:acute on chronic Duration: ongoing Location: home Severity: severe Associated symptoms: Deny chest pain, dyspnea, nausea, rash, palpitations or vomiting Review of Systems Const: Denies: fever(s) or chills Eyes: Denies: change in vision ENMT: Denies: mouth pain Card: Denies: chest pain or palpitations Resp: Denies: dyspnea or non-productive cough GI: Denies: abdominal pain, nausea, vomiting or diarrhea : Denies: dysuria Musc: Denies: extremity pain Skin/Breast: Denies: rash or new lesions Neuro: Denies: weakness in extremities Psych: Reports: depression, hopelessness and loss of interest Justo/Lymph: Denies: easy bruising PFSH ED PFSH: Medical History Anxiety Depression Fatigue Foreign body in left ear Hypertension screen Medication management Otitis externa Vitamin D deficiency Surgical History No pertinent past surgical history Social History Smoking and tobacco status: never smoked Physical Exam Const: COMMON NORMALS: alert HENMT: COMMON NORMALS: atraumatic HEAD & SCALP: atraumatic MOUTH: moist mucous membranes not abnormal Eye: COMMON NORMALS: EOMs intact bilaterally and conjunctivae normal CONJUNCTIVA: Yes conjunctivae normal Neck/C-Spine: COMMON NORMALS: full ROM and supple Resp: COMMON NORMALS: normal respiratory effort and clear to auscultation bilaterally AUSCULTATION: clear to auscultation bilaterally Cardio: COMMON NORMALS: regular rate RATE: regular rate GI: COMMON NORMALS: Soft to palpation and non-tender PALPATION: Yes Soft to palpation Extremity: COMMON NORMALS: full ROM Neuro: SENSORIUM/ORIENTATION: Yes alert MOTOR EXAM: No Abnormal motor strength present and Other motor observations present (no focal motor deficits) Psych: COMMON NORMALS: speech normal SPEECH: Yes normal speech MOOD & AFFECT: Yes apathetic Course Vital Signs: Vital signs: Vital Signs Temperature 98.8 F 02/19/22 20:50 Pulse Rate 96 02/19/22 20:50 Respiratory Rate 16 02/19/22 20:50 Blood Pressure 170/100 02/19/22 20:50 Pulse Oximetry 96 02/19/22 20:50 MDM - General Adult Medical Decision Making [27]yo patient w/ hx of depression presenting for severe depression. HDS, exam within normal limit Thoughts are linear and organized, and the patient has no AH/VH, or HI. Clinically the patient displays no overt toxidrome; they are well appearing, with low suspicion for toxic ingestion given history and exam. Symptoms unlikely 2/2 anemia, hypothyroidism, infection, or ICH. Workup: CBC, CMP, Lipase, salicylate/tylenol, UDS Lab findings: wnl, +marijuana in the urine [10:30pm] On reassessment, labs and workup wnl. Patient is hemodynamically stable with no acute medical complaints. Case discussed with psychiatric provider Dr. Gaviria at [facility] psych inpatient with recommendation for admission Disposition: Psych Lab Data : 02/19/22 21:07 02/19/22 21:07 Laboratory Results WBC 11.4 10^3/uL (4.0-10.0) H 02/19/22 21:07 RBC 5.32 10^6/uL (4.1-5.3) H 02/19/22 21:07 Hgb 15.5 g/dL (11.7-16.6) 02/19/22 21:07 Hct 45.6 % (42.0-52.0) 02/19/22 21:07 MCV 85.7 fl (80-94) 02/19/22 21:07 MCH 29.1 pg (28.0-34.0) 02/19/22 21: MCHC 34.0 g/dL (30.0-36.0) 02/19/22 21:07 RDW 12.7 % (12.1-15.1) 02/19/22 21:07 Plt Count 209 10^3/cmm (130-400) 02/19/22 21:07 MPV 10.2 fL (7.4-10.4) 02/19/22 21:07 Neut % (Auto) 67.6 % 02/19/22 21:07 Lymph % (Auto) 23.3 % 02/19/22 21:07 [place] % (Auto) 7.9 % 02/19/22 21:07 Eos % (Auto) 0.4 % 02/19/22 21:07 Baso % (Auto) 0.4 % 02/19/22 21:07 Neut # (Auto) 7.70 10^3/uL (1.8-7.7) 02/19/22 21:07 Lymph # (Auto) 2.7 10^3/uL (0.8-4.8) 02/19/22 21:07 [place] # (Auto) 0.9 10^3/uL (0.2-0.9) 02/19/22 21:07 Eos # (Auto) 0.0 10^3/uL (0.0-0.8) 02/19/22 21:07 Baso # (Auto) 0.0 10^3/uL (0.0-0.1) 02/19/22 21:07 Nucleated RBC % (auto) 0 % 02/19/22 21:07 Nucleated RBCs # 0.0 /100WBC 02/19/22 21:07 Urine Opiates Screen Negative ng/mL (Negative) 02/19/22 21:08 Ur Barbiturates Screen Negative ng/mL (Negative) 02/19/22 21:08 Ur Phencyclidine Scrn Negative ng/mL (Negative) 02/19/22 21:08 Ur Amphetamines Screen Negative ng/mL (Negative) 02/19/22 21:08 U Benzodiazepines Scrn Negative ng/mL (Negative) 02/19/22 21:08 Urine Cocaine Screen Negative ng/mL (Negative) 02/19/22 21:08 U Marijuana (THC) Screen Positive ng/mL (Negative) H 02/19/22 21:08 Discharge Plan Discharge Patient Disposition: Admitted As Inpatient Clinical Impression: Depression, Unable to take care of personal possessions Condition: Stable Coding Level of Care Code ED Compliance Testing Analyst for Delbertg Fwd Exam Comprehensive
[2022-02-19 21:16] LABS: Basophils % 0.4 %; Eosinophils % 0.4 %; Hematocrit 45.6 % (42.0-52.0); Hemoglobin 15.5 g/dL (11.7-16.6); Lymphocytes # 2.7 10^3/uL (0.8-4.8); Lymphocytes % 23.3 %; Mean Corpuscular Hemoglobin 29.1 pg (28.0-34.0); Mean Corpuscular Volume 85.7 fl (80-94); Mean Platelet Volume 10.2 fL (7.4-10.4); Monocytes # 0.9 10^3/uL (0.2-0.9); Monocytes % 7.9 %; Neutrophils % 67.6 %; Nucleated Red Blood Cells % 0 %; Platelet Count 209 10^3/cmm (130-400); Red Blood Count 5.32 10^6/uL (4.1-5.3); Red Cell Distribution Width 12.7 % (12.1-15.1); White Blood Count 11.4 10^3/uL (4.0-10.0)
[2022-02-19 21:27] LABS: Amphetamines Screen Urine Negative (Negative); Barbiturates Screen Urine Negative (Negative); Benzodiazepines Screen Urine Negative (Negative); Cocaine Screen Urine Negative (Negative); Opiate Screen Urine Negative (Negative); PCP Screen Urine Negative (Negative); THC Screen Urine Positive (Negative)
[2022-02-19 21:39] LABS: Alanine Aminotransferase 22 U/L (0-41); Albumin Level 4.6 g/dL (3.5-5.2); Alkaline Phosphatase 92 IU/L (40-130); Anion Gap 14.8 (5-19); Aspartate Amino Transferase 18 U/L (0-40); Blood Urea Nitrogen 23 mg/dL (6-20); Calcium 9.7 mg/dL (8.5-10.5); Carbon Dioxide 22 mmol/L (22-29); Chloride 108 mmol/L (98-107); Globulin 2.1 g/dL (1.3-4.6); Glomerular Filtration Rate 80.9 mL/min (90-130); Glucose 107 mg/dL (65-115); Lipase 36 U/L (13-60); Osmolality Calculated 296 mOsm/kg (285-295); Potassium 3.8 mmol/L (3.5-5.1); Sodium 141 mmol/L (136-145); Total Bilirubin 0.3 mg/dL (0.15-1.2); Total Protein 6.7 g/dL (6.6-8.7)
[2022-02-19 21:43] LABS: Acetaminophen < 5.0 ug/mL (10-30); Salicylate < 0.3 mg/dL (3-10)
[2022-02-19 21:57] VITALS: BP 148/79; PULSE 90; RESP 16; TEMP 37.1; O2SAT 96
[2022-02-19 22:21] VITALS: BP 143/92; PULSE 86; RESP 16; TEMP 36.8; O2SAT 96
[2022-02-19 22:24] VITALS: BP 148/79; PULSE 90; RESP 16; TEMP 37.1; O2SAT 96
[2022-02-19] MEDS: hyDROXYzine 25 mg Capsule 50 MG PO (23:03)
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
[2022-02-20] MEDS: OLANZapine 5 mg ODT PO ×2 (00:03→21:03)
--- NOTE | 2022-02-20 00:04 | PC.NURSE ---
Patient came to nurses station and states that he is still having racing thoughts. Olanzapine was given. Patient is back in his room
[2022-02-20 06:00] VITALS: BP 128/77; PULSE 83; RESP 17; TEMP 36.9; O2SAT 99
--- NOTE | 2022-02-20 08:17 | PC.OT ---
OT EVALUATION ATTEMPTED; PATIENT DOES NOT AWAKEN TO VOICE. WILL ATTEMPT AGAIN AT A LATER TIME.
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
[2022-02-20] MEDS: fluoxetine 20 mg Capsule PO (12:00)
[2022-02-20 13:40] VITALS: BP 129/63; PULSE 67; RESP 16; TEMP 36.8; O2SAT 97
[2022-02-20] MEDS: hyDROXYzine 25 mg Capsule 50 MG PO (19:30)
[2022-02-20 19:59] VITALS: BP 119/76; PULSE 84; RESP 18; TEMP 37; O2SAT 96
[2022-02-21 06:00] VITALS: BP 102/58; PULSE 97; RESP 19; TEMP 36.6; O2SAT 91
[2022-02-21] MEDS: hyDROXYzine 25 mg Capsule 50 MG PO ×2 (08:40→20:33)
[2022-02-21] MEDS: fluoxetine 20 mg Capsule PO (08:40)
--- NOTE | 2022-02-21 09:33 | PC.NURSE ---
PRN MED PT GIVEN 50MG VISTARIL FOR STATED ANXIETY, WILL CONTINUE TO MONITOR.
--- NOTE | 2022-02-21 11:29 | W.PM.NPUPNS ---
Subjective NPU Subjective: He said that he is doing a little better. He feels like his thoughts are a little slowed down. He says that the trazodone takes too long to help him sleep and he would like to take that at 6 PM and then the Zyprexa Zydis at 9 PM. He says that he is trying to worry less about things that are not in his control. Much of his troubles are and control of other people. He has not had any side effects from the medication so far. He has had 2 doses of Prozac 20 mg. Mental Status Exam MSE Comments: This is a 27-year old appropriate weight male who appears his approximately stated age and is in no acute distress. He was found in group at 10:30 AM. His grooming is improved. hHe is pleasant and cooperative with the evaluation. Eye contact is improved. psychomotor activity decreased. Speech is at a regular rate and rhythm, normal volume, good articulation, not pressured. Alert, oriented X3 Attention and concentration fair. Memory is intact Mood is mildly depressed, better Affect is mildly dysphoric, improved Thought process is logical and goal-directed. Thought content: Denies auditory and visual hallucinations. No delusions or paranoia are noted. No current suicidal ideation, and no homicidal ideation. Fund of knowledge is average. Insight and judgment appear to be fair. Impulse control is fair. Cognition: Patient Appearance: Appropriate Level of Consciousness: Awake, Alert, Appropriate and Follows Commands Patient Cognition Impaired: No Ability to Follow Directions: Excellent Patient Orientation (long list): Person, Place, Name, Age and Month Comprehension Ability: No Impairment Hallucination Type: None Delusion Description: Not Present Thought Process: Appropriate Affect: Affect Description: Anxious and Flat Depressive Symptoms: Difficulty Sleeping, Feelings of Worthlessness and Unhappiness Behavior: Patient Behavior: Appropriate, Cooperative and Withdrawn Speech Pattern: Appropriate and Clear Vitals/I&O/Wt Last Vital Signs Temp 97.8 F 02/21/22 06:00 Pulse 97 02/21/22 06:00 Resp 19 H 02/21/22 06:00 BP 102/58 02/21/22 06:00 Pulse Ox 91 02/21/22 06:00 Weight last 48 hrs Weight 90.718 kg Data NPU : 02/19/22 21:07 02/19/22 21:07 A&P Assessment and plan (1) Depression: Status: Acute (2) Fatigue: Status: Acute (3) Anxiety: Status: Acute Plan This is a 27-year-old male with a long history of anxiety depression and ADHD who comes in with worsening symptoms of anxiety and depression and inability to function. Plan: 1. Continue current medication. Prozac 20 mg daily and Vistaril 50 mg at bedtime 2. Continue every 15 minute checks for safety. 3. Encourage individual, group and milieu therapies. 4. Encourage sober living treatment after discharge at the highest level of care to which he is willing to commit. 5. We will monitor for safety for himself in the community prior to discharge. Involuntary Hold Information 96 Hour Hold: 96 Hour Involuntary Admission: No Attestations NPU Medical Necessity Statement*: Inpatient hospitalization is medically necessary and the clinically appropriate intervention at this time. We will initiate medications and make changes as indicated. 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
[2022-02-21 14:00] VITALS: BP 138/100; PULSE 124; RESP 18; TEMP 36.8; O2SAT 98
[2022-02-21 16:03] VITALS: BP 143/87; PULSE 93; RESP 18; TEMP 36.7; O2SAT 97
[2022-02-21] MEDS: trazodone 50 mg Tablet PO (17:03)
[2022-02-21] MEDS: OLANZapine 5 mg ODT PO (19:14)
[2022-02-21 20:30] VITALS: BP 124/78; PULSE 88; RESP 17; TEMP 37.1; O2SAT 97
[2022-02-22 06:00] VITALS: BP 120/72; PULSE 93; RESP 19; TEMP 36.4; O2SAT 95
[2022-02-22] MEDS: fluoxetine 20 mg Capsule PO (10:04)
[2022-02-22] MEDS: hyDROXYzine 25 mg Capsule 50 MG PO ×2 (10:04→20:31)
[2022-02-22] MEDS: OLANZapine 5 mg ODT PO ×3 (11:31→21:25)
[2022-02-22 14:00] VITALS: BP 131/70; PULSE 110; RESP 17; TEMP 36.8; O2SAT 96
--- NOTE | 2022-02-22 14:18 | PC.NURSE ---
PRN Medication Up to nurses station requesting something for anxiety. Vistaril 50 mg given as ordered. Reports some relief.
--- NOTE | 2022-02-22 14:19 | PC.NURSE ---
PRN Medication Up to nurses station at 1130 and request something else for anxiety. Zydis 5 mg given as ordered at 1131. Reassessed at 1230 and voices relief.
--- NOTE | 2022-02-22 16:01 | PC.SOCIAL ---
Patient did not attend group.
[2022-02-22] MEDS: trazodone 50 mg Tablet PO (17:42)
[2022-02-22 20:28] VITALS: BP 106/60; PULSE 85; RESP 19; TEMP 36.7; O2SAT 94
--- NOTE | 2022-02-22 21:45 | PC.NURSE ---
PRN Medication Patient came to nurses station requested medication for anxiety. Scheduled Hydroxyzine had already been administered. Olanzapine was given at this time.
[2022-02-23 06:00] VITALS: BP 115/72; PULSE 95; RESP 17; TEMP 36.4; O2SAT 95
[2022-02-23] MEDS: fluoxetine 20 mg Capsule 40 MG PO (08:12)
[2022-02-23] MEDS: hyDROXYzine 25 mg Capsule 50 MG PO ×2 (09:58→20:08)
--- NOTE | 2022-02-23 10:01 | PC.NURSE ---
Addendum entered by Fanta Randhawa RN 02/23/22 13:38: Late entry 2288 Vistaril not effective. Patient requested other meds to help with anxiety. Zyprexa Zydis given for anxiety. Original Note: Prn note Patient c/o feeling very anxious. Prn Vistaril given
--- NOTE | 2022-02-23 11:00 | P.NPUPN_ITS ---
Subjective NPU Subjective: He says that his anxiety is reduced. He feels like the Prozac has been helpful. He took Prozac 40 mg for the first time today. He does not have any side effects. He says that the reality of the situation is sinking in. He will probably go and live with his parents for a short time but then will sell some things and maybe by April he will go to another state. He has done that before without any money and will plan it better this time. He asked if he could get a 3-month supply of medication to assist in that process but it sounds like it would be a couple months before he is ready and he can get that from his outpatient psychiatrist. Mental Status Exam MSE Comments: This is a 27-year old appropriate weight male who appears his approximately stated age and is in no acute distress. He was found in group at 10:30 AM. His grooming is improved. hHe is pleasant and cooperativ e with the evaluation. Eye contact is improved. psychomotor activity decreased. Speech is at a regular rate and rhythm, normal volume, good articulation, not pressured. Alert, oriented X3 Attention and concentration fair. Memory is intact Mood is mildly depressed, better Affect is mildly dysphoric, improved Thought process is logical and goal-directed. Thought content: Denies auditory and visual hallucinations. No delusions or paranoia are noted. No current suicidal ideation, and no homicidal ideation. Fund of knowledge is average. Insight and judgment appear to be fair. Impulse control is fair. Cognition: Patient Appearance: Appropriate Level of Consciousness: Awake, Alert, Appropriate and Follows Commands Patient Cognition Impaired: No Ability to Follow Directions: Excellent Patient Orientation (long list): Person, Place, Name, Age and Birthday Comprehension Ability: No Impairment Hallucination Type: None Delusion Description: Not Present Thought Process: Appropriate Affect: Affect Description: Anxious Depressive Symptoms: Difficulty Sleeping, Feelings of Worthlessness and Unhappiness Behavior: Patient Behavior: Appropriate and Cooperative Speech Pattern: Appropriate and Clear Vitals/I&O/Wt Last Vital Signs Temp 97.6 F 02/23/22 06:00 Pulse 95 02/23/22 06:00 Resp 17 02/23/22 06:00 BP 115/72 02/23/22 06:00 Pulse Ox 95 02/23/22 06:00 Data NPU : 02/19/22 21:07 02/19/22 21:07 A&P Assessment and plan (1) Depression: Status: Acute (2) Fatigue: Status: Acute (3) Anxiety: Status: Acute Plan This is a 27-year-old male with a long history of anxiety depression and ADHD who comes in with worsening symptoms of anxiety and depression and inability to function. Plan: 1. Continue current medication. Increase Prozac 40 mg daily. Vistaril 50 mg at bedtime 2. Continue every 15 minute checks for safety. 3. Encourage individual, group and milieu therapies. 4. Encourage sober living treatment after discharge at the highest level of care to which he is willing to commit. 5. We will monitor for safety for himself in the community prior to discharge. Involuntary Hold Information 96 Hour Hold: 96 Hour Involuntary Admission: No Attestations NPU Medical Necessity Statement*: Inpatient hospitalization is medically necessary and the clinically appropriate intervention at this time. We will initiate medications and make changes as indicated. 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
[2022-02-23] MEDS: OLANZapine 5 mg ODT PO ×3 (11:49→22:41)
--- NOTE | 2022-02-23 13:39 | PC.NURSE ---
Prn note Patient reports the Zyprexa partially effective. He continues to have some anxiety. He denies need for meds at this time.
[2022-02-23 13:46] VITALS: BP 138/88; PULSE 64; RESP 17; TEMP 36.6; O2SAT 100
--- NOTE | 2022-02-23 16:49 | PC.SOCIAL ---
Patient attended and participated in group.
[2022-02-23] MEDS: haloperidol 5 mg Tablet PO (18:31)
[2022-02-23 20:05] VITALS: BP 122/79; PULSE 117; RESP 18; O2SAT 97
[2022-02-23] MEDS: trazodone 50 mg Tablet PO (21:31)
--- NOTE | 2022-02-24 00:22 | PC.NURSE ---
2130 rec'd trazodone for sleep. 2243- rec'd zyprexa for anxiety.
[2022-02-24 06:00] VITALS: BP 100/59; PULSE 111; RESP 18; O2SAT 95
[2022-02-24] MEDS: fluoxetine 20 mg Capsule 40 MG PO (08:24)
--- NOTE | 2022-02-24 09:03 | PC.NURSE ---
AM Assessment Resting in bed, arouses to voice. Denies pain. Denies SI/HI and AVH. Does report, I don't think my night time medications are working and its hard for me to go to sleep. Asked patient if he has told doc yet and states, no Educated patient to let doctor know how he is feeling and if medications are working. Patient voices understanding. Directed to get up and go to breakfast but declined and went back to sleep.
[2022-02-24] MEDS: hyDROXYzine 25 mg Capsule 50 MG PO ×2 (11:37→20:20)
--- NOTE | 2022-02-24 12:10 | W.PM.NPUPNS ---
Subjective NPU Subjective: He said that he is about the same. A little better than on admission but not much. He has been talking to his parents but nobody else in the family. I was not sure whether or not his and family was talking to his parents but the parents were not allowed to relay anything to him or whether nobody was talking to his parents. He thinks the medicine is helping a little. He has not had any side effects. Mental Status Exam MSE Comments: This is a 27-year old appropriate weight male who appears his approximately stated age and is in no acute distress. He was found in the hallway at 12 PM his grooming is improved. He is pleasant and cooperative with the evaluation. Eye contact is improved. psychomotor activity decreased. Speech is at a regular rate and rhythm, normal volume, good articulation, not pressured. Alert, oriented X3 Attention and concentration fair. Memory is intact Mood is mildly depressed, better Affect is mildly dysphoric, improved Thought process is logical and goal-directed. Thought content: Denies auditory and visual hallucinations. No delusions or paranoia are noted. No current suicidal ideation, and no homicidal ideation. Fund of knowledge is average. Insight and judgment appear to be fair. Impulse control is fair. Cognition: Patient Appearance: Appropriate Level of Consciousness: Awake, Alert, Appropriate and Follows Commands Patient Cognition Impaired: No Ability to Follow Directions: Excellent Patient Orientation (long list): Person, Place, Name, Age and Birthday Comprehension Ability: No Impairment Hallucination Type: None Delusion Description: Not Present Thought Process: Appropriate Affect: Affect Description: Depressed and Flat Depressive Symptoms: Difficulty Sleeping, Feelings of Worthlessness and Unhappiness Behavior: Patient Behavior: Cooperative and Withdrawn Speech Pattern: Appropriate and Clear Vitals/I&O/Wt Last Vital Signs Temp 97.8 F 02/23/22 13:46 Pulse 111 H 02/24/22 06:00 Resp 18 02/24/22 06:00 BP 100/59 02/24/22 06:00 Pulse Ox 95 02/24/22 06:00 Data NPU : 02/19/22 21:07 02/19/22 21:07 A&P Assessment and plan (1) Depression: Status: Acute (2) Fatigue: Status: Acute (3) Anxiety: Status: Acute Plan This is a 27-year-old male with a long history of anxiety depression and ADHD who comes in with worsening symptoms of anxiety and depression and inability to function. Plan: 1. Continue current medication. Increase Prozac 40 mg daily. Vistaril 50 mg at bedtime 2. Continue every 15 minute checks for safety. 3. Encourage individual, group and milieu therapies. 4. Encourage sober living treatment after discharge at the highest level of care to which he is willing to commit. 5. We will monitor for safety for himself in the community prior to discharge. Involuntary Hold Information 96 Hour Hold: 96 Hour Involuntary Admission: No Attestations NPU Medical Necessity Statement*: Inpatient hospitalization is medically necessary and the clinically appropriate intervention at this time. We will initiate medications and make changes as indicated. 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
[2022-02-24] MEDS: OLANZapine 5 mg ODT PO ×2 (13:28→18:26)
[2022-02-24 14:00] VITALS: BP 118/66; PULSE 99; RESP 17; TEMP 36.7; O2SAT 96
--- NOTE | 2022-02-24 16:29 | PC.NURSE ---
PRN Medications Up to nurses station at 1326 requesting medication for anxiety. ZYdis 5 mg given as ordered. Reassessed at 1430 and states his anxiety is much better. He was laying down and resting at that time in bed.
--- NOTE | 2022-02-24 18:27 | PC.NURSE ---
PRN Medication Up to nurses station requesting anxiety medications. States, i'm anxious again. Zydis 5 mg given as ordered. Patient went back to room and is resting in bed.
[2022-02-24 19:55] VITALS: BP 124/77; PULSE 76; RESP 20; TEMP 36.7; O2SAT 100
[2022-02-24] MEDS: trazodone 50 mg Tablet PO (21:26)
--- NOTE | 2022-02-24 22:24 | PC.NURSE ---
2125- requested trazodone for sleep. He is still awake at this time.
[2022-02-25 06:00] VITALS: BP 125/68; PULSE 67; RESP 20; TEMP 36.5; O2SAT 96
[2022-02-25] MEDS: fluoxetine 20 mg Capsule 40 MG PO (08:15)
--- NOTE | 2022-02-25 09:07 | PC.NURSE ---
Resting in bed, arouses to voice. Denies pain. Denies SI/HI and AVh at this time. States he slept well. Reports he is still having anxiety but does not need anything for it now. After assessment went back to sleep.
--- NOTE | 2022-02-25 11:45 | W.PM.NPUPNS ---
Subjective NPU Subjective: He says that his depression is not really getting any better. His anxiety is better. He denies ever having any suicidal ideation. He continues to say that he is safe to go home and has not had any thoughts of harming himself. He has only been on the Prozac 40 mg for a few days. He understands that it can take some time to start working. He wanted to add something to it to get it to work better and agreed to take some Abilify. Mental Status Exam MSE Comments: This is a 27-year old appropriate weight male who appears his approximately stated age and is in no acute distress. He was found in the hallway at 11:30 AM. his grooming is improved. He is pleasant and cooperative with the evaluation. Eye contact is improved. psychomotor activity decreased. Speech is at a regular rate and rhythm, normal volume, good articulation, not pressured. Alert, oriented X3 Attention and concentration fair. Memory is intact Mood is depressed, better Affect is constricted, mildly dysphoric. Thought process is logical and goal-directed. Thought content: Denies auditory and visual hallucinations. No delusions or paranoia are noted. No current suicidal ideation, and no homicidal ideation. Fund of knowledge is average. Insight and judgment appear to be fair. Impulse control is fair. Cognition: Patient Appearance: Appropriate Level of Consciousness: Awake, Alert, Appropriate and Follows Commands Patient Cognition Impaired: No Ability to Follow Directions: Excellent Patient Orientation (long list): Person, Place, Name, Age and Birthday Comprehension Ability: No Impairment Hallucination Type: None Delusion Description: Not Present Thought Process: Appropriate Affect: Affect Description: Appropriate and Anxious Depressive Symptoms: Difficulty Sleeping, Feelings of Worthlessness and Unhappiness Behavior: Patient Behavior: Appropriate and Cooperative Speech Pattern: Appropriate Vitals/I&O/Wt Last Vital Signs Temp 97.7 F 02/25/22 06:00 Pulse 67 02/25/22 06:00 Resp 20 H 02/25/22 06:00 BP 125/68 02/25/22 06:00 Pulse Ox 96 02/25/22 06:00 Data NPU : 02/19/22 21:07 02/19/22 21:07 A&P Assessment and plan (1) Depression: Status: Acute (2) Fatigue: Status: Acute (3) Anxiety: Status: Acute Plan This is a 27-year-old male with a long history of anxiety depression and ADHD who comes in with worsening symptoms of anxiety and depression and inability to function. Plan: 1. Continue current medication. Increase Prozac 40 mg daily. Add Abilify 5 mg every morning. 50 mg at bedtime 2. Continue every 15 minute checks for safety. 3. Encourage individual, group and milieu therapies. 4. Encourage sober living treatment after discharge at the highest level of care to which he is willing to commit. 5. We will monitor for safety for himself in the community prior to discharge. Involuntary Hold Information 96 Hour Hold: 96 Hour Involuntary Admission: No Attestations NPU Medical Necessity Statement*: Inpatient hospitalization is medically necessary and the clinically appropriate intervention at this time. We will initiate medications and make changes as indicated. Coding Level of Care Code Acute Clinical Laboratory Technician for Ila Post Diagnoses Depression F32.A Fatigue R53.83 Anxiety F41.9
[2022-02-25] MEDS: ARIPiprazole 10 mg Tablet 5 MG PO (12:02)
[2022-02-25 14:00] VITALS: BP 134/79; PULSE 99; RESP 18; TEMP 36.7; O2SAT 97
[2022-02-25] MEDS: hyDROXYzine 25 mg Capsule 50 MG PO (20:19)
[2022-02-25 20:29] VITALS: BP 142/91; PULSE 107; RESP 18; TEMP 36.9; O2SAT 97
[2022-02-25] MEDS: trazodone 50 mg Tablet PO (22:32)
[2022-02-26] MEDS: OLANZapine 5 mg ODT PO (00:36)
--- NOTE | 2022-02-26 00:38 | PC.NURSE ---
PRN ADMIN Patient c/o of racing thoughts and anxiety. PRN Zydis given as ordered with noted effectiveness.
[2022-02-26 06:00] VITALS: BP 126/74; PULSE 89; RESP 19; TEMP 36.4; O2SAT 97
[2022-02-26] MEDS: ARIPiprazole 10 mg Tablet 5 MG PO (09:15)
[2022-02-26] MEDS: fluoxetine 20 mg Capsule 40 MG PO (09:16)
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
[2022-02-26 10:48] VITALS: BP 126/74; PULSE 89; RESP 19; TEMP 36.4; O2SAT 97
== END 2022-02-26 12:54 | disposition home or self-care (01) | DRG 881 ==
LOC: ER 21:07 → NP 22:19
PROVIDERS: Admitting Provider Psychiatry & Neurology Psychiatry; Emergency Provider Emergency Medicine; PCP Nurse Practitioner Family; Visit Provider Psychiatry & Neurology Psychiatry
DX: F32.A Depression, unspecified (principal); F90.9 Attention-deficit hyperactivity disorder, unspecified type; F41.9 Anxiety disorder, unspecified
CPT/HCPCS: 80053; 80306; 80307; 83690; 85025; 90471; 90686; 97150; 97165; 99285